=== PATIENT | male | born 1990 | race African-American/Black ===

== ENCOUNTER 2019-12-27 18:42 | Emergency (ER) | payer BC, MEDICAID ==
[~2019-12-27] VITALS: Ht 172.7 cm; Wt 70.0 kg
[2019-12-27] MEDS ORDERED: DEXT10TA4 PO (18:56)
[2019-12-27] MEDS ORDERED: ALPR0.5T PO (18:56)
[2019-12-28 00:26] VITALS: BP 131/74
== END 2019-12-28 00:36 | disposition home or self-care (01) ==
LOC: ER 18:42
DX: F19.10 Other psychoactive substance abuse, uncomplicated (principal); F41.9 Anxiety disorder, unspecified; F32.9 Major depressive disorder, single episode, unspecified
CPT/HCPCS: 99283

== ENCOUNTER 2023-05-19 17:08 | Emergency (ER) | payer MEDICAID ==
[~2023-05-19] VITALS: Ht 175.3 cm; Wt 77.0 kg
[~2023-05-19 17:08] MED LIST: ALPR0.5T PO; DEXT10TA4 PO
[2023-05-19 17:17] VITALS: O2SAT 98
[2023-05-19 17:53] LABS: BASOPHILS % 0.5 % (0.0-2.0); EOSINOPHILS % 0.3 % (0.0-5.0); HEMATOCRIT. 41.7 % (42.0-52.0); HEMOGLOBIN. 14.3 g/dL (14.0-18.0); LYMPHOCYTES % 29.9 % (20.0-50.0); MEAN CORPUSCULAR HEMOGLOBIN 32.4 pg (28.0-32.0); MEAN CORPUSCULAR VOLUME 94.8 fL (80.0-94.0); MONOCYTES % 8.9 % (2.0-8.0); NEUTROPHILS % 60.4 % (40.0-76.0); PLATELET 294 x1000/uL (130-400); RED CELL DISTRIBUTION WIDTH 12.9 % (11.6-14.6)
[2023-05-19 17:56] LABS: CLARITY URINE CLEAR (CLEAR); COLOR URINE YELLOW (YELLOW); KETONES URINE NEGATIVE (NEGATIVE); LEUKOCYTE ESTERASE URINE NEGATIVE (NEGATIVE); NITRITE URINE NEGATIVE (NEGATIVE); OCCULT BLOOD URINE NEGATIVE (NEGATIVE); PROTEIN URINE NEGATIVE (NEGATIVE); SPECIFIC GRAVITY URINE 1.008 (1.005-1.030); UROBILINOGEN URINE 0.2 E.U./dL (0.2-1.0)
[2023-05-19 17:56] LABS: CHLORIDE 101 mEq/L (98-107)
[2023-05-19] MEDS ORDERED: IBUPROFEN 400MG TABLET PO ONE (19:15)
[2023-05-19 21:08] VITALS: BP 141/70; PULSE 86; RESP 18; TEMP 98.3
== END 2023-05-19 21:29 | disposition home or self-care (01) ==
LOC: ER 17:24
DX: R07.89 Other chest pain (principal); F41.9 Anxiety disorder, unspecified; F32.9 Major depressive disorder, single episode, unspecified; F17.210 Nicotine dependence, cigarettes, uncomplicated
CPT/HCPCS: 36415; 71045; 80053; 81003; 84484; 85025; 85379; 93005; 99285; 99406